=== PATIENT | female | born 1945 | race Caucasian/White ===

== ENCOUNTER 2020-07-22 09:42 | Day surgery (SDC) | payer MEDICARE, OTHER, SELFPAY ==
[2020-07-22 09:57] VITALS: BMI 23.0
--- NOTE | 2020-07-22 10:00 | HO.ANESPROP2 ---
[facility] Past Medical History Medical History Asthma Barretts esophagus Colon polyps Elevated cholesterol Fibromyalgia GERD (gastroesophageal reflux disease) HTN (hypertension) Osteoarthritis Osteoporosis Social History Social History Advance Directives: Yes Advance Directives Information Provided: No Advance Directives on File: No Meds Allergies Allergy/AdvReac Type Severity Reaction Status Date / Time aspirin Allergy Bruising Verified 07/22/20 09:58 Home Medications Medication Instructions Recorded Confirmed Type omeprazole 40 mg PO BID 07/18/20 07/18/20 History Exam Exam Date and Time: July 22, 2020 1000 Height,Weight and Vital Signs: Height 5 ft 2 in Weight 57.153 kg Airway Mallampati Class: III TM Dist: >3cm Neck ROM: Full Denture: Upper Loose/Missing/Broken Teeth: No Heart: rrr Lungs: nl Other: ao3 Assessment and Plan Assessment Anesthesia Assessment: Anesthesia Plan Discussed and Chart Reviewed Final Anesthetic Review NPO: Yes ASA Class: III Final Preanesthetic Review: No Changes in Pt Med Stat, Meds/Allgs Chart Reviewed, Consent Obtained/Reviewed and Anes Risks/Benef Reviewed Patient Risk: High Procedure Risk: Intermediate Anesthetic Plan Anesthetic Plan: MAC: Disposition: Standard PACU
--- NOTE | 2020-07-22 10:13 | MHC.SHP ---
Pre-Procedural Eval Section B Chief Complaint: Raphael's, Abnormal Imaging of ABD Details of Present Illness: barretts, abnormal ct scan gi tract Relevant Family History (Specify if Yes): No Relevant Social History: None Present Medications: see Short Stay Collaborative assessment Medical History: Significant History (see H&P no changes) History of Previous Operations: No relevant previous surgery Allergies: Allergies Allergy/AdvReac Type Severity Reaction Status Date / Time aspirin Allergy Bruising Verified 07/22/20 09:58 Review of Systems Sugical H&P ROS: Negative: Constitution, Cardiovascular, Respiratory, Neurological, Psychiatric, Hem-Onc, Allergic/Immunologic, Gastrointestinal, Genitourinary, Musculoskeletal, Integumentary, Endocrine and Eyes/Ears/Nose/Throat Exam Surgical H&P Exam: Normal: HEENT, Normal: Heart, Normal: Lungs, Normal: Extremities, Normal: Abdomen, Normal: Skin and Normal: Neurological Plan Diagnosis/Plan: Unchanged Patient has been examined and remains a candidate for the planned procedure
[2020-07-22 10:23] VITALS: PULSE 82; RESP 16; TEMP 36.6; O2SAT 98
[2020-07-22 11:23] VITALS: BP 138/43; PULSE 76; RESP 16; TEMP 36.1; O2SAT 95
--- NOTE | 2020-07-22 11:30 | PM.OP ---
Brief Operative Note Date of procedure: 07/22/20 Pre-op diagnosis: Barretts, abnormal ct scan gi tract Post-op diagnosis: other (esophageal mass, colon polyps) Procedure: EGD, colon Surgeon: Gordy Ibrahim Anesthesia: MAC Estimated blood loss (mL): 5 Pathology: other (antral, egj mass, egj biopsies, colon polyps x2) Condition: stable Disposition: PACU
[2020-07-22 11:38] VITALS: BP 135/42; PULSE 69; RESP 16; O2SAT 98
--- NOTE | 2020-07-22 11:59 | OP_ITS ---
SURGEON: Gordy Ibrahim MD INDICATIONS: Raphael's esophagus and abnormal CT scan of GI tract. PREOPERATIVE DIAGNOSIS: POSTOPERATIVE DIAGNOSIS: PROCEDURE PERFORMED: 1. Upper endoscopy with biopsy. 2. Colonoscopy to the terminal ileum with biopsy. ESTIMATED BLOOD LOSS: COMPLICATIONS: ANESTHESIA: ASSISTANTS: SPECIMENS: MEDICATIONS: Monitored anesthesia care. DESCRIPTION OF PROCEDURE: History and physical performed. The risks and benefits of the procedure were explained to the patient. Informed consent was obtained. The patient was placed in left lateral decubitus position. A digital rectal exam was performed and was found to be normal. The Olympus pediatric video gastroscope was introduced into the esophagus, stomach, and duodenum. Examination was performed and the scope was removed. She was repositioned for colonoscopy. A digital rectal exam was performed and was found to be normal. The Olympus pediatric video colonoscope was introduced into the rectum and advanced to the cecum without difficulty. The cecum was identified by transillumination, palpation, and identification of ileocecal valve. Examination was performed and the scope was removed. She tolerated the procedures well and was taken to recovery area in stable condition. FINDINGS: UPPER ENDOSCOPY: Esophagus: The esophagus showed an irregular EG junction. There was a 15 x 18 mass below the EG junction, which was friable. This was biopsied. Biopsies were obtained from the EG junction as well. There was no evidence of ulceration. Stomach: The stomach showed no evidence of masses or ulcers. Antral biopsies were obtained. Duodenum: The bulb and second portion were normal. COLONOSCOPY: The terminal ileum was normal. The visualized colonic mucosa was normal. There was melanosis coli. In the cecum, there were two small less than 5 mm sessile polyps seen, removed with biopsy forceps. No other polyps were identified. Retroflexed examination was normal. IMPRESSION: 1. EG junction mass. 2. Raphael's esophagus. 3. Colon polyps. RECOMMENDATION: Follow up biopsy results. MD AMBER Amor/WALTER / [id number]
== END 2020-07-22 12:19 | disposition home or self-care (01) ==
PROVIDERS: Internal Medicine Gastroenterology; PCP Family Medicine; Visit Provider Internal Medicine
PROC: (CPT 45380; principal; 2020-07-22 10:50)
DX: R93.3 Abnormal findings on diagnostic imaging of other parts of digestive tract (principal); Z86.010 Personal history of colon polyps; D12.0 Benign neoplasm of cecum; K22.70 Barrett's esophagus without dysplasia; K21.00 Gastro-esophageal reflux disease with esophagitis, without bleeding; C16.0 Malignant neoplasm of cardia; I10 Essential (primary) hypertension; E78.00 Pure hypercholesterolemia, unspecified; J45.909 Unspecified asthma, uncomplicated; Z79.899 Other long term (current) drug therapy; Z88.8 Allergy status to other drugs, medicaments and biological substances
CPT/HCPCS: 45380; 43239; 88305; 88342; 88360; J3010

== ENCOUNTER 2022-05-14 09:46 | Day surgery (SDC) | payer MEDICARE, OTHER, SELFPAY ==
[2022-04-06 15:13] VITALS: BMI 23.2
--- NOTE | 2022-05-13 09:28 | HO.ANESPROP2 ---
Documented by User: Julieta Stroud NP 05/13/22 09:31 HPI - Anesthesia Eval Consult details Narrative: 77yo F for Upper Endoscopy PMF[facility] Past Medical History Medical History Asthma Barretts esophagus Colon polyps COVID-19 vaccine series completed DNR (do not resuscitate) Elevated cholesterol Esophageal cancer Fibromyalgia GERD (gastroesophageal reflux disease) HTN (hypertension) Osteoarthritis Osteoporosis Surgical History Surgical History H/O colonoscopy H/O: hysterectomy History of esophagogastroduodenoscopy (EGD) Hx of appendectomy Hx of tonsillectomy Social History Social History Housing Other:: [facility] Are you a primary child care center administrator to a significant other at home: No Do you presently have visiting nurse or other home services: No Patient Tobacco Use Status: Never used Tobacco Use of substances other than those prescribed or required for medical reasons: Yes Substance Use Type Other:: medical marijuana last was hs Substance Use Frequency: Daily Have you been hit, kicked, punched, or otherwise hurt by someone within the past year? If so, by whom?: No Are you DNR?: Yes Advance Directives: No Advance Directives Information Provided: Yes Advance Directives on File: No Nutrition Risks: No Nutritional Risk Meds Allergies Allergy/AdvReac Type Severity Reaction Status Date / Time aspirin Allergy Intermediate bruises Verified 05/14/22 09:43 easily Home Medications Medication Instructions Recorded Confirmed Last Taken Type omeprazole 40 mg capsule,delayed 40 mg PO BID 07/22/20 04/06/22 Unknown History release Lactobacillus rhamnosus GG 10 1 cap PO DAILY 04/06/22 04/06/22 Unknown History billion cell capsule (Culturelle) albuterol sulfate 90 mcg/actuation 2 puff inhalation Q4-6H PRN 04/06/22 04/06/22 Unknown History aerosol inhaler (Ventolin HFA) Shortness Of Breath budesonide-formoterol HFA 160 1 puff inhalation BID 04/06/22 04/06/22 05/14/22 History mcg-4.5 mcg/actuation aerosol inhaler (Symbicort) calcium carbonate 500 mg calcium 500 mg PO DAILY 04/06/22 04/06/22 Unknown History (1,250 mg) tablet cholecalciferol (vitamin D3) 50 50 mcg PO DAILY 04/06/22 04/06/22 Unknown History mcg (2,000 unit) capsule (Vitamin D3) cranberry fruit 450 mg tablet 450 mg PO DAILY 04/06/22 04/06/22 Unknown History (cranberry) fenofibrate micronized 134 mg 134 mg PO DAILY 04/06/22 04/06/22 Unknown History capsule levothyroxine 50 mcg tablet 50 mcg PO DAILY 04/06/22 04/06/22 05/14/22 History metoprolol tartrate 25 mg tablet 25 mg PO BID 04/06/22 04/06/22 05/14/22 History multivitamin 1 tab PO DAILY 04/06/22 04/06/22 Unknown History pregabalin 150 mg capsule (Lyrica) 150 mg PO BID 04/06/22 04/06/22 05/14/22 History Exam Exam Date and Time: May 13, 202228 Height,Weight and Vital Signs: Height 5 ft 1 in Weight 55.792 kg Assessment and Plan Assessment Anesthesia Assessment: Chart Reviewed Documented by User: Sophia Isabel MD 05/14/22 10:29 [facility] Past Medical History Medical History Asthma Barretts esophagus Colon polyps COVID-19 vaccine series completed DNR (do not resuscitate) Elevated cholesterol Esophageal cancer Fibromyalgia GERD (gastroesophageal reflux disease) HTN (hypertension) Osteoarthritis Osteoporosis Family History Family history of problems with anesthesia: No Surgical History Surgical History H/O colonoscopy H/O: hysterectomy History of esophagogastroduodenoscopy (EGD) Hx of appendectomy Hx of tonsillectomy History of Problems with Anesthesia: No Social History Social History Housing Other:: [facility] Are you a primary child care center administrator to a significant other at home: No Do you presently have visiting nurse or other home services: No Patient Tobacco Use Status: Never used Tobacco Use of substances other than those prescribed or required for medical reasons: Yes Substance Use Type Other:: medical marijuana last was hs Substance Use Frequency: Daily Have you been hit, kicked, punched, or otherwise hurt by someone within the past year? If so, by whom?: No Are you DNR?: Yes Advance Directives: No Advance Directives Information Provided: Yes Advance Directives on File: No Nutrition Risks: No Nutritional Risk Meds Allergies Allergy/AdvReac Type Severity Reaction Status Date / Time aspirin Allergy Intermediate bruises Verified 05/14/22 09:43 easily Home Medications Medication Instructions Recorded Confirmed Last Taken Type omeprazole 40 mg capsule,delayed 40 mg PO BID 07/22/20 04/06/22 Unknown History release Lactobacillus rhamnosus GG 10 1 cap PO DAILY 04/06/22 04/06/22 Unknown History billion cell capsule (Culturelle) albuterol sulfate 90 mcg/actuation 2 puff inhalation Q4-6H PRN 04/06/22 04/06/22 Unknown History aerosol inhaler (Ventolin HFA) Shortness Of Breath budesonide-formoterol HFA 160 1 puff inhalation BID 04/06/22 04/06/22 05/14/22 History mcg-4.5 mcg/actuation aerosol inhaler (Symbicort) calcium carbonate 500 mg calcium 500 mg PO DAILY 04/06/22 04/06/22 Unknown History (1,250 mg) tablet cholecalciferol (vitamin D3) 50 50 mcg PO DAILY 04/06/22 04/06/22 Unknown History mcg (2,000 unit) capsule (Vitamin D3) cranberry fruit 450 mg tablet 450 mg PO DAILY 04/06/22 04/06/22 Unknown History (cranberry) fenofibrate micronized 134 mg 134 mg PO DAILY 04/06/22 04/06/22 Unknown History capsule levothyroxine 50 mcg tablet 50 mcg PO DAILY 04/06/22 04/06/22 05/14/22 History metoprolol tartrate 25 mg tablet 25 mg PO BID 04/06/22 04/06/22 05/14/22 History multivitamin 1 tab PO DAILY 04/06/22 04/06/22 Unknown History pregabalin 150 mg capsule (Lyrica) 150 mg PO BID 04/06/22 04/06/22 05/14/22 History Exam Airway Mallampati Class: II TM Dist: >3cm Neck ROM: Full Loose/Missing/Broken Teeth: Yes and Upper Assessment and Plan Assessment Anesthesia Assessment: Anesthesia Plan Discussed Final Anesthetic Review Family History of Problems with Anesthesia: No History of Problems with Anesthesia: No NPO: Yes ASA Class: II Final Preanesthetic Review: No Changes in Pt Med Stat, Meds/Allgs Chart Reviewed, Consent Obtained/Reviewed and Anes Risks/Benef Reviewed Patient Risk: Low Procedure Risk: Low Anesthetic Plan Anesthetic Plan: MAC: Disposition: Standard PACU
[2022-05-14] MEDS: Lactated Ringers 1,000 ML 100 ML IVCONT (10:14)
[2022-05-14 10:15] VITALS: BP 162/62; PULSE 70; RESP 18; TEMP 36.6; O2SAT 100
--- NOTE | 2022-05-14 10:55 | MHC.SHP ---
Pre-Procedural Eval Section A Date of Service: 05/14/22 Section B Chief Complaint: Diaphragmatic hernia without obstruction or gangre Details of Present Illness: see H&P no changes Relevant Family History (Specify if Yes): No Relevant Social History: None Present Medications: see Short Stay Collaborative assessment Medical History: No relevant PMH History of Previous Operations: No relevant previous surgery Allergies: Allergies Allergy/AdvReac Type Severity Reaction Status Date / Time aspirin Allergy Intermediate bruises Verified 05/14/22 09:43 easily Review of Systems Sugical H&P ROS: Negative: Constitution, Cardiovascular, Respiratory, Neurological, Psychiatric, Hem-Onc, Allergic/Immunologic, Gastrointestinal, Genitourinary, Musculoskeletal, Integumentary, Endocrine and Eyes/Ears/Nose/Throat Exam Surgical H&P Exam: Normal: HEENT, Normal: Heart, Normal: Lungs, Normal: Extremities, Normal: Abdomen, Normal: Skin and Normal: Neurological Plan Diagnosis/Plan: Unchanged I have reviewed the history and physical and performed a pertinent physical examination on my patient. No changes have occurred unless specified.
[2022-05-14 11:16] VITALS: BP 130/38; PULSE 76; RESP 16; TEMP 36.1; O2SAT 98
--- NOTE | 2022-05-14 11:24 | PM.OP ---
Brief Operative Note Date of Service: 05/14/22 Surgeon: Gordy Ibrahim Anesthesia: MAC Was an Incising Machine Operator used for this Procedure?: No Estimated blood loss (mL): 5 Pathology: other Condition: stable Disposition: PACU
[2022-05-14 11:31] VITALS: BP 151/43; PULSE 80; RESP 16; O2SAT 98
[2022-05-14 11:46] VITALS: BP 143/59; PULSE 79; RESP 16; TEMP 36.1; O2SAT 100
--- NOTE | 2022-05-14 12:07 | OP_ITS ---
SURGEON: Gordy Ibrahim MD INDICATIONS: Chest pain, hiatal hernia, and esophageal adenocarcinoma. PREOPERATIVE DIAGNOSIS: POSTOPERATIVE DIAGNOSIS: PROCEDURE PERFORMED: Upper endoscopy with biopsy. ESTIMATED BLOOD LOSS: COMPLICATIONS: ANESTHESIA: ASSISTANTS: SPECIMENS: MEDICATIONS: Monitored anesthesia care. DESCRIPTION OF PROCEDURE: History and physical performed. The risks and benefits of the procedure were explained to the patient. Informed consent was obtained and the patient was placed in the left lateral decubitus position. The Olympus videogastroscope was introduced into the esophagus, stomach, and duodenum. Examination was performed. The scope was removed. She tolerated the procedure well and was taken to recovery room in stable condition. FINDINGS: Esophagus: The esophagus was normal. There was no esophagitis. The previously identified mass at the EG junction was not present. No tumor was seen. There was no esophagitis. Stomach showed a moderately large hiatal hernia, which had been previously identified. There were few linear streaks of erythema in the antrum consistent with mild gastritis. Biopsies were obtained from the antrum. Duodenum: The bulb and second portion were normal. IMPRESSION: 1. Gastritis. 2. Hiatal hernia. RECOMMENDATION: Follow up the biopsy results. MD AMBER Amor/WALTRE / [id number]
== END 2022-05-14 11:55 | disposition home or self-care (01) ==
PROVIDERS: PCP Nurse Practitioner Family; Visit Provider Internal Medicine Gastroenterology
PROC: 0DJ08ZZ Inspection of Upper Intestinal Tract, Via Natural or Artificial Opening Endoscopic (ICD-10-PCS; CPT 43235; principal; 2022-05-14 11:00)
DX: R07.9 Chest pain, unspecified (principal); K44.9 Diaphragmatic hernia without obstruction or gangrene; C15.9 Malignant neoplasm of esophagus, unspecified; K29.50 Unspecified chronic gastritis without bleeding; K22.70 Barrett's esophagus without dysplasia; K21.9 Gastro-esophageal reflux disease without esophagitis; I10 Essential (primary) hypertension; E78.00 Pure hypercholesterolemia, unspecified; J45.909 Unspecified asthma, uncomplicated; M79.7 Fibromyalgia; M81.0 Age-related osteoporosis without current pathological fracture; Z79.899 Other long term (current) drug therapy; Z79.51 Long term (current) use of inhaled steroids; Z88.8 Allergy status to other drugs, medicaments and biological substances; Z66 Do not resuscitate
CPT/HCPCS: 43239; 88305; 88342

== ENCOUNTER 2024-02-15 10:54 | Emergency (ER) | payer MEDICARE, OTHER, SELFPAY ==
--- NOTE | ~2024-02-15 | XR_ITS ---
EXAMINATION: XR CHEST CLINICAL INFORMATION: Check port COMPARISON: None available. TECHNIQUE: Frontal view of the chest was obtained. FINDINGS: There is a right jugular port that appears intact with tip projecting over the SVC. The cardiac and mediastinal contours are normal. The lungs are clear. No pleural effusion or pneumothorax. XR/XR chest 1V IMPRESSION: Normal appearance of right jugular port with tip projecting over the SVC.
--- NOTE | ~2024-02-15 | US_ITS ---
EXAMINATION: US ABDOMEN LIMITED CLINICAL INFORMATION: Right upper quadrant pain, gallstones. COMPARISON: None available. TECHNIQUE: Real-time imaging of the right upper quadrant abdominal viscera. FINDINGS: Evaluation is limited by overlying bowel gas. PANCREAS: Limited evaluation LIVER: Normal. The liver is normal in size. The liver contour is normal. Parenchymal echogenicity is mildly increased. A 14 mm cyst is evident in the left hepatic lobe. No follow-up is needed. There is no intrahepatic biliary duct dilatation seen. GALLBLADDER: Small calculi are evident layering within the gallbladder. No wall thickening or pericholecystic edema is present, but the patient does report pain upon sonographic compression in the right upper quadrant. COMMON BILE DUCT: Normal in caliber measuring 0.4 cm in diameter. RIGHT KIDNEY: Normal. No hydronephrosis. No renal calculi or focal parenchymal lesions. The kidney measures 10.4 cm in maximum dimension. FREE FLUID: None. US/US abdomen limited IMPRESSION: 1. Cholelithiasis with sonographic pain in the right upper quadrant, but no pericholecystic fluid or gallbladder wall thickening. 2. Mildly echogenic liver, likely on the basis of steatosis.
[2024-02-15 11:05] VITALS: BP 168/100; BP 190/59; PULSE 82; RESP 16; TEMP 36.6; O2SAT 100; O2SAT 98; BMI 21.6
--- NOTE | 2024-02-15 11:06 | ED_ITS ---
HPI - Nausea/Vomiting/Diarrhea General Chief complaint: Abdominal Pain Stated complaint: ABN BM ,H/O CA,DR TOLD TO COME TO ER PER EMS Time Seen by Provider: 02/15/24 10:58 Source: patient, EMS, RN notes reviewed and old records reviewed Mode of arrival: EMS Limitations: no limitations History of Present Illness HPI Narrative: 78-year-old female with history of esophageal cancer status post chemotherapy now on maintenance chemo, history of recurrent UTIs, hypothyroidism who presents to the ER for evaluation of orange diarrhea for the last 1 week. She was seen at [place] [facility] on 02/07 for similar complaints and was diagnosed with a UTI and started on antibiotics. She had a CT scan showing diverticulosis but no diverticulitis. Her lab work showed mild hypokalemia. She states for the last 1 week she has had 2-3 episodes of orange diarrhea every morning. She states everything is ?going right through her. ? She was able to eat mashed potatoes last night and did not have any diarrhea. No vomiting or nausea. She has some lower abdominal discomfort described as cramping. She denies any urinary symptoms. No fever or chills. She called her GI doctor, Dr. Ibrahim who advised her to come to the emergency room for further evaluation and treatment. MD elicited complaint: diarrhea and abdominal pain Pertinent past history: other (Esophageal cancer) Onset (ago): week(s) (1) Description of diarrhea: other ([place]) Associated nausea: No Associated abdominal pain: Yes Pain consistency: intermittent Quality: cramping Exacerbating factors: eating Associated symptoms: loss of appetite Related Data Home Medications ?Medication ?Instructions ?Recorded ?Confirmed omeprazole 40 mg capsule,delayed 40 mg PO BID 07/22/20 04/06/22 release Lactobacillus rhamnosus GG 10 1 cap PO DAILY 04/06/22 04/06/22 billion cell capsule (Culturelle) albuterol sulfate 90 mcg/actuation 2 puff inhalation Q4-6H PRN 04/06/22 04/06/22 aerosol inhaler (Ventolin HFA) Shortness Of Breath budesonide-formoterol HFA 160 1 puff inhalation BID 04/06/22 04/06/22 mcg-4.5 mcg/actuation aerosol inhaler (Symbicort) calcium carbonate 500 mg PO DAILY 04/06/22 04/06/22 cholecalciferol (vitamin D3) 50 50 mcg PO DAILY 04/06/22 04/06/22 mcg (2,000 unit) capsule (Vitamin D3) cranberry fruit 450 mg tablet 450 mg PO DAILY 04/06/22 04/06/22 (cranberry) fenofibrate micronized 134 mg 134 mg PO DAILY 04/06/22 04/06/22 capsule levothyroxine 50 mcg tablet 50 mcg PO DAILY 04/06/22 04/06/22 metoprolol tartrate 25 mg tablet 25 mg PO BID 04/06/22 04/06/22 multivitamin 1 tab PO DAILY 04/06/22 04/06/22 pregabalin 150 mg capsule (Lyrica) 150 mg PO BID 04/06/22 04/06/22 Allergies Allergy/AdvReac Type Severity Reaction Status Date / Time aspirin Allergy Intermediate bruises Verified 02/15/24 11:07 easily latex Allergy Itching Verified 02/15/24 13:15 transparent dressing Allergy Redness of Verified 02/15/24 14:11 [Tegaderm] Skin Review of Systems 2 Review of Systems: Yes all other systems are reviewed and are negative Gastrointestinal: Gastrointestinal: Denies nausea PMFSH Past Medical History Medical History (Updated 02/15/24 @ 13:26 by EDUARDO Del Rosario) DNR (do not resuscitate) COVID-19 vaccine series completed Esophageal cancer Colon polyps Barretts esophagus GERD (gastroesophageal reflux disease) Fibromyalgia Osteoporosis Asthma Osteoarthritis Elevated cholesterol HTN (hypertension) Surgical History History of esophagogastroduodenoscopy (EGD) Hx of tonsillectomy H/O: hysterectomy Hx of appendectomy H/O colonoscopy Social History Social History Housing Other:: [facility] Are you a primary chiropractic care to a significant other at home: No Do you presently have visiting nurse or other home services: No Patient Tobacco Use Status: Never used Tobacco Advance Directives: No Advance Directives Information Provided: No Do you have a plan to hurt others: No Plan Physical Exam 2 Vital Signs: Vital Signs: Last Vital Signs Temp 97.7 F 02/15/24 16:13 Pulse 78 02/15/24 16:13 Resp 16 02/15/24 16:13 BP 173/42 H 02/15/24 16:13 Pulse Ox 96 02/15/24 16:13 O2 Del Method Room Air 02/15/24 16:13 BMI result Body Mass Index 21.6 Appearance: Alert. Oriented X3. No acute distress. Head: normocephalic, atraumatic. Eyes: Pupils equal, round and reactive to light. ENT: Pharynx normal. No tonsillar swelling or exudate. Neck: Normal inspection. Neck supple. CVS: Normal heart rate and rhythm. Pulses normal. Respiratory: No respiratory distress. Breath sounds normal. Abdomen: Obese, Soft and nontender. +BS x4 Skin: Skin warm and dry. Normal skin color. Normal skin turgor. No rashes. Extremities: No lower extremity edema. No joint swelling. Neuro/psych: Oriented X 3. No motor deficit. No sensory deficit. CN II-XII intact. Normal speech and cognition. Medications Administered Discontinued Medications Generic Name Dose Route Start Last Admin Trade Name Freq PRN Reason Stop Dose Admin Lactated Ringer's 1,000 mls @ 999 mls/hr 02/15/24 13:15 02/15/24 14:45 Lr IV 02/15/24 14:15 Infused .Q1H1M LEVON Infusion Potassium Chloride 60 meq 02/15/24 12:59 02/15/24 15:16 Potassium Chloride Er 20 Meq Tab.Er.Prt PO 02/15/24 13:00 60 meq ONCE ONE Administration Medical Decision Making Medical Decision Making [facility] Narrative: 78-year-old female with history of esophageal cancer status post chemotherapy now on maintenance chemo, history of recurrent UTIs, hypothyroidism who presents to the ER for evaluation of orange diarrhea for the last 1 week. She was seen at [facility] on 02/07 for similar complaints and was diagnosed with a UTI and started on antibiotics. She has soft abdomen on exam with some mild diffuse tenderness. Records from [place] were reviewed. CT scan was largely unremarkable some mild diverticulosis and bladder wall thickening were noted. Labs today showed no leukocytosis. Stable H&H. She does have some hypokalemia of 2.8. She was given oral repletion. No diarrhea since she has been observed in the emergency department. Stool studies have been ordered but she has not been able to go. Right upper quadrant ultrasound was done per patient's request and report of intermittent right upper quadrant pain. She has known gallstones on recent CT scan. Right upper quadrant ultrasound does not show any evidence of gallbladder wall thickening or pericholecystic fluid. No evidence of acute cholecystitis. Patient is given oral crackers and juice and is tolerating it well. She took 60 mEq of oral potassium. Repeat potassium is pending. If her repeat potassium is improved, she is agreeable to go home and follow-up with her doctor as needed. Differential Diagnosis Differential Diagnoses: The differential diagnosis associated with the presentation includes Gastroenteritis viral versus bacterial, C diff, colitis, cholecystitis, dehydration, metabolic derangement, ARTIS Admission/Observation Consideration of admission/observation: Escalation of care including admission/observation considered Second visit to the ER in 1 week Lab Data MDM Lab Attestation statement: I reviewed the patient's lab results. Stable anemia, hypokalemia 02/15/24 12:25 02/15/24 12:25 Labs: Lab Results 02/15/24 02/15/24 Range/Units 12:25 15:29 WBC 7.0 (4.8-10.8) X10*3/uL RBC 3.75 L (4.20-5.50) X10*6/uL Hgb 11.5 L (12.0-16.0) g/dl Hct 32.4 L (37.0-47.0) % MCV 86.4 (80.0-98.0) fL MCH 30.7 (27.0-33.0) pg MCHC 35.5 H (31.0-35.0) g/dl RDW 13.9 (11.0-16.0) % Plt Count 329 (160-400) X10*3/uL MPV 10.4 (9.4-12.3) fL Immature Gran % (Auto) 0.3 (0.0-0.4) % Neut % (Auto) 64.5 (45-73) % Lymph % (Auto) 24.6 (20-40) % [place] % (Auto) 8.9 (2-11) % Eos % (Auto) 1.1 (0-4) % Baso % (Auto) 0.6 (0-2) % Lymph # (Auto) 1.7 (1.2-4.9) X10*3/uL [place] # (Auto) 0.6 (0.1-1.2) X10*3/uL Eos # (Auto) 0.1 (0.0-0.4) X10*3/uL Baso # (Auto) 0.0 (0.0-0.2) X10*3/uL Abs Immat Gran (auto) 0.02 (0.00-0.03) X10*3/uL Absolute Neuts (auto) 4.5 (2.0-8.3) x10*3/uL Absolute Nucleated RBC 0.000 (0.0-0.012) X10*3/uL Nucleated RBC % (auto) 0.0 (0.0-0.2) /100WBC Sodium 145 (135-145) mmol/L Potassium 2.8 L* (3.3-5.1) mmol/L Chloride 110 H (96-108) mmol/L Carbon Dioxide 20 L (22-29) mmol/L Anion Gap 18 (12-20) BUN 18 H (9-16) mg/dL Creatinine 0.68 (0.5-1.4) mg/dL Estim Creat Clear Calc 54.7 Estimated GFR > 60 Random Glucose 92 (60-115) mg/dL Calcium 9.4 (8.4-10.2) mg/dL Magnesium 1.8 (1.6-2.6) mg/dL Total Bilirubin 0.4 (0.0-1.0) mg/dL Direct Bilirubin 0.2 (0.0-0.5) mg/dL AST 43 H (5-31) U/L ALT 30 (0-31) U/L Alkaline Phosphatase 23 L (39-117) U/L Total Protein 6.8 (6.5-8.0) g/dL Albumin 4.0 (3.5-5.0) g/dL Lipase 15 (8-78) U/L Urine Color Yellow Urine Appearance Hazy Urine pH 6.0 (5.0-9.0) Ur Specific [place] >= 1.030 H (1.005-1.025) Urine Protein Trace (Neg-Trace) mg/dL Urine Glucose (UA) Negative (Negative) mg/dL Urine Ketones 15 (Negative) mg/dL Urine Blood Negative (Negative) Urine Nitrite Negative (Negative) Ur Leukocyte Esterase Small (1+) H (Negative) Urine RBC 0-2 (0-2) /HPF Urine WBC 0-5 (0-5) /HPF Ur Squamous Epith Cells 0-2 (0-2) /HPF Urine Bacteria Trace (None Seen) Hyaline Casts 0-2 (0-2) /LPF Independent Interpretation I performed an independent interpretation of an: Ultrasound Interpretation: No pericholecystic fluid or gallbladder wall thickening Radiology Impression Discussion of test interpretation with radiology: I have reviewed the radiologist's reading. Radiologist Impression: EXAMINATION: US ABDOMEN LIMITED CLINICAL INFORMATION: Right upper quadrant pain, gallstones. COMPARISON: None available. TECHNIQUE: Real-time imaging of the right upper quadrant abdominal viscera. FINDINGS: Evaluation is limited by overlying bowel gas. PANCREAS: Limited evaluation LIVER: Normal. The liver is normal in size. The liver contour is normal. Parenchymal echogenicity is mildly increased. A 14 mm cyst is evident in the left hepatic lobe. No follow-up is needed. There is no intrahepatic biliary duct dilatation seen. GALLBLADDER: Small calculi are evident layering within the gallbladder. No wall thickening or pericholecystic edema is present, but the patient does report pain upon sonographic compression in the right upper quadrant. COMMON BILE DUCT: Normal in caliber measuring 0.4 cm in diameter. RIGHT KIDNEY: Normal. No hydronephrosis. No renal calculi or focal parenchymal lesions. The kidney measures 10.4 cm in maximum dimension. FREE FLUID: None. US/US abdomen limited IMPRESSION: 1. Cholelithiasis with sonographic pain in the right upper quadrant, but no pericholecystic fluid or gallbladder wall thickening. 2. Mildly echogenic liver, likely on the basis of steatosis. Independent Historian Clinical information obtained from an independent historian. History obtained from or confirmed by: EMS External Record Review External record reviewed: Outside ED record H&H at the outside hospital was 11.8/34. White blood cell count was 5.6. Prescription Management I considered prescription management with: Pain Medication and Antibiotic Chronic Conditions Patient?s care impacted by: Other (esophageal cancer) Critical Care Time Critical Care Time Critical Care Time: No Discharge Plan Discharge Clinical Impression: Acute hypokalemia, Diarrhea Patient Disposition: Still a Patient Instructions: Hypokalemia (ED), Gastroenteritis (DC) Additional Instructions: Your lab workup showed a low potassium. Your given potassium supplements today in the emergency department. Recommend getting her labs checked within the next week by her primary care doctor. Your urine test was negative for infection You most likely have a viral GI bug also known as gastroenteritis. Treatment is supportive care, symptoms usually resolve on their own in 48-72 hours. Recommend rest and plenty of oral hydration. Stick to a bland diet like soup and toast while you are not feeling well. Recommend over the counter Pepto Bismol or Imodium for upset stomach and diarrhea. If you develop new or worsening symptoms call 911 or come back to the ER for further evaluation. Prescriptions: No Action omeprazole 40 mg Capsule,Delayed Release(Dr/Ec) 40 mg PO BID multivitamin Tablet 1 tab PO DAILY fenofibrate micronized 134 mg Capsule 134 mg PO DAILY calcium carbonate 500 mg calcium (1,250 mg) Tablet 500 mg PO DAILY levothyroxine 50 mcg Tablet 50 mcg PO DAILY albuterol sulfate [Ventolin HFA] 90 mcg/actuation Hfa Aerosol Inhaler 2 puff INHALATION Q4-6H PRN (Reason: Shortness Of Breath) Culturelle 10 billion cell Capsule 1 cap PO DAILY metoprolol tartrate 25 mg Tablet 25 mg PO BID pregabalin [Lyrica] 150 mg Capsule 150 mg PO BID budesonide-formoterol [Symbicort] 160-4.5 mcg/actuation Hfa Aerosol Inhaler 1 puff INHALATION BID cholecalciferol (vitamin D3) [Vitamin D3] 50 mcg (2,000 unit) Capsule 50 mcg PO DAILY cranberry 450 mg Tablet 450 mg PO DAILY Rx Instructions: administer with a meal Referrals: Chastity Hernandez NP [Primary Care Provider] - Print Language: American
[2024-02-15 12:33] LABS: MANUAL DIFF FLAG NO
[2024-02-15 12:34] LABS: Basophils Percent Auto 0.6 % (0-2); Eosinophils Absolute Auto 0.1 X10*3/uL (0.0-0.4); Eosinophils Percent Auto 1.1 % (0-4); Hematocrit 32.4 % (37.0-47.0); Hemoglobin 11.5 g/dl (12.0-16.0); Imm Gran Abs Auto 0.02 X10*3/uL (0.00-0.03); Imm Gran Pct Auto 0.3 % (0.0-0.4); Lymphocytes Absolute Auto 1.7 X10*3/uL (1.2-4.9); Lymphocytes Percent Auto 24.6 % (20-40); Mean Corpuscular HGB Conc 35.5 g/dl (31.0-35.0); Mean Corpuscular Hemoglobin 30.7 pg (27.0-33.0); Mean Corpuscular Volume 86.4 fL (80.0-98.0); Mean Platelet Volume 10.4 fL (9.4-12.3); Monocytes Absolute Auto 0.6 X10*3/uL (0.1-1.2); Monocytes Percent Auto 8.9 % (2-11); Neutrophils Absolute Auto 4.5 x10*3/uL (2.0-8.3); Neutrophils Percent Auto 64.5 % (45-73); Platelet Count 329 X10*3/uL (160-400); Red Blood Count 3.75 X10*6/uL (4.20-5.50); Red Cell Distribution Width 13.9 % (11.0-16.0)
[2024-02-15 12:59] LABS: Alanine Aminotransferase 30 U/L (0-31); Alkaline Phosphatase 23 U/L (39-117); Anion Gap 18 (12-20); Aspartate Amino Transferase 43 U/L (5-31); Bilirubin Direct 0.2 mg/dL (0.0-0.5); Bilirubin Total 0.4 mg/dL (0.0-1.0); Blood Urea Nitrogen 18 mg/dL (9-16); Calcium 9.4 mg/dL (8.4-10.2); Carbon Dioxide 20 mmol/L (22-29); Chloride 110 mmol/L (96-108); Creatinine Clr Calc Pharmacy 54.7; Estimated Glomerular Filt Rate > 60; Glucose Random 92 mg/dL (60-115); Lipase 15 U/L (8-78); Magnesium 1.8 mg/dL (1.6-2.6); Potassium 2.8 mmol/L (3.3-5.1); Sodium 145 mmol/L (135-145); Total Protein 6.8 g/dL (6.5-8.0)
[2024-02-15] MEDS: Lactated Ringers 1,000 ML 999 ML IV (13:19)
[2024-02-15 13:32] VITALS: BP 177/49; PULSE 71; RESP 16; TEMP 37; O2SAT 100
--- NOTE | 2024-02-15 14:33 | PC.NURSE ---
US at bedside
[2024-02-15] MEDS: Potassium Chloride ER 20 MEQ TAB.ER.PRT 60 MEQ PO (15:16)
--- NOTE | 2024-02-15 15:19 | PC.NURSE ---
pt medicated per MAR
[2024-02-15 15:35] LABS: Appearance Urine Hazy; Color Urine Yellow; Glucose Urine UA Negative (Negative); Leukocyte Esterase Urine Small (1+) (Negative); Nitrite Urine Negative (Negative); Specific Gravity - Urine >= 1.030 (1.005-1.025); UMIC TRIGGER UACC YES; Urine Blood Negative (Negative); Urine Ketones 15 mg/dL (Negative); Urine Protein Trace mg/dL (Neg-Trace)
[2024-02-15 15:45] LABS: Bacteria Urine Trace (None Seen); Hyaline Casts Urine 0-2 /LPF (0-2); RBC Urine 0-2 /HPF (0-2); Squamous Epithelial Cell Urine 0-2 /HPF (0-2); UACC Culture Trigger YES; WBC Urine 0-5 /HPF (0-5)
[2024-02-15 16:13] VITALS: BP 173/42; PULSE 78; RESP 16; TEMP 36.5; O2SAT 96
--- NOTE | 2024-02-15 16:18 | PC.NURSE ---
re:late labs, pt has been unable to provider stool sample at this time.
[2024-02-15 17:24] LABS: Potassium 3.2 mmol/L (3.3-5.1)
[2024-02-15 18:19] VITALS: BP 173/42; PULSE 78; RESP 18; TEMP 36.5; O2SAT 96
[2024-02-15 19:01] LABS: CDiff Gene PCR POSITIVE (Negative)
[2024-02-15 19:44] LABS: CDIFF Internal ctrl Dots and bkg OK (V)
[2024-02-15 19:52] LABS: CDiff Toxin Positive (Negative)
[2024-02-16 12:07] LABS: Adenovirus F 40/41 Not Detected (Not Detect.); Astrovirus Not Detected (Not Detect.); Campylobacter Not Detected (Not Detect.); Cryptosporidium Not Detected (Not Detect.); Cyclospora cayetanensis Not Detected (Not Detect.); E. coli EAEC Not Detected (Not Detect.); E. coli EPEC Not Detected (Not Detect.); E. coli ETEC Not Detected (Not Detect.); E. coli STEC Not Detected (Not Detect.); Entamoeba histolytica Not Detected (Not Detect.); Giardia lamblia Not Detected (Not Detect.); Norovirus GI/GII Not Detected (Not Detect.); Plesiomonas shigelloides Not Detected (Not Detect.); Rotavirus A Not Detected (Not Detect.); Salmonella Not Detected (Not Detect.); Sapovirus Not Detected (Not Detect.); Shigella sp./EIEC Not Detected (Not Detect.); Vibrio Not Detected (Not Detect.); Vibrio Cholerae Not Detected (Not Detect.); Yersinia enterocolitica Not Detected (Not Detect.)
== END 2024-02-15 18:20 | disposition home or self-care (01) ==
PROVIDERS: Physician Assistant; Emergency Provider Emergency Medicine; PCP Nurse Practitioner Family
DX: K80.20 Calculus of gallbladder without cholecystitis without obstruction (principal); E87.6 Hypokalemia; R10.11 Right upper quadrant pain; R11.2 Nausea with vomiting, unspecified; D89.89 Other specified disorders involving the immune mechanism, not elsewhere classified; R10.30 Lower abdominal pain, unspecified; Z79.899 Other long term (current) drug therapy
CPT/HCPCS: 36415; 71045; 76705; 80048; 80076; 81001; 83690; 83735; 84132; 85025; 87086; 87324; 87493; 87507; 96360; 99283; 99284; J7120